=== PATIENT | male | born 1975 | race Caucasian/White ===

== ENCOUNTER 2022-04-13 21:13 | Emergency (ER) | payer OTHER ==
[2022-04-14] MEDS ORDERED: CYCLOBENZAPRINE10 MG PO (00:44)
== END 2022-04-14 00:50 | disposition home or self-care (01) ==
LOC: ER1 21:13
PROVIDERS: Family Medicine
DX: S86.911A Strain of unspecified muscle(s) and tendon(s) at lower leg level, right leg, initial encounter (principal); S29.012A Strain of muscle and tendon of back wall of thorax, initial encounter; V49.40XA Driver injured in collision with unspecified motor vehicles in traffic accident, initial encounter; Y92.410 Unspecified street and highway as the place of occurrence of the external cause
CPT/HCPCS: 71046; 73564; 80307; 99284